=== PATIENT | male | born 2000 | race Caucasian/White ===

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

== ENCOUNTER 2020-02-07 23:26 | Emergency (ER) | payer OTHER ==
[~2020-02-07] VITALS: Ht 185.4 cm; Wt 90.7 kg
[~2020-02-07 23:26] MED LIST changes: +CIPRO500 MG PO; +NORCO 10-325 T1 EACH PO
[2020-02-07 23:35] VITALS: BP 121/60
== END 2020-02-08 01:30 | disposition home or self-care (01) ==
LOC: ED 23:26
DX: S86.911A Strain of unspecified muscle(s) and tendon(s) at lower leg level, right leg, initial encounter (principal); X58.XXXA Exposure to other specified factors, initial encounter; Y93.89 Activity, other specified; Y92.89 Other specified places as the place of occurrence of the external cause; Y99.8 Other external cause status

== ENCOUNTER → 2020-03-22 | Outpatient (CLI) | payer OTHER | END | disposition home or self-care (01) | LOC: COVID19 14:20 | PROVIDERS: ATTEND Internal Medicine | DX: Z20.828 Contact with and (suspected) exposure to other viral communicable diseases (principal) ==

== ENCOUNTER 2021-02-20 13:35 | Emergency (ER) | payer OTHER ==
[~2021-02-20] VITALS: Ht 182.8 cm; Wt 108.9 kg
[2021-02-20] MEDS ORDERED: CEPHALEXIN500 M1 PO (14:28)
[2021-02-20] MEDS ORDERED: SEPTDS PO (14:28)
== END 2021-02-20 14:36 | disposition home or self-care (01) ==
LOC: ED 13:35
DX: L05.91 Pilonidal cyst without abscess (principal)

== ENCOUNTER 2021-02-22 16:10 | Emergency (ER) | payer OTHER ==
[~2021-02-22 16:10] MED LIST changes: +SEPTDS PO
[2021-02-22 16:32] VITALS: BP 144/72
[2021-02-22] MEDS ORDERED: IBUPROFEN600 MG PO (17:02)
[2021-02-22] MEDS ORDERED: HYDROCODONE-AC1 EAC1 PO (17:02)
== END 2021-02-22 17:07 | disposition home or self-care (01) ==
LOC: ED 16:10
DX: L05.01 Pilonidal cyst with abscess (principal); Z91.030 Bee allergy status; Z79.2 Long term (current) use of antibiotics; Z79.899 Other long term (current) drug therapy

== ENCOUNTER 2021-10-13 17:44 | Emergency (ER) | payer OTHER ==
[~2021-10-13] VITALS: Ht 185.4 cm; Wt 104.3 kg
[~2021-10-13 17:44] MED LIST changes: +HYDROCODONE-AC1 EAC1 PO; +IBUPROFEN600 MG PO
[2021-10-13 17:58] VITALS: BP 131/61
[2021-10-13] MEDS ORDERED: CEPHALEXIN500 M1 PO (18:07)
[2021-10-13] MEDS ORDERED: NAPROXEN250 MG PO (18:07)
[2021-10-13] MEDS ORDERED: TYLENOL325 M1 PO (18:07)
[2021-10-13] MEDS ORDERED: HYDROCODONE-AC1 EAC1 PO ×3 (19:15→19:19)
== END 2021-10-13 19:26 | disposition home or self-care (01) ==
LOC: ED 17:44
DX: L05.91 Pilonidal cyst without abscess (principal)

== ENCOUNTER 2022-09-05 17:19 | Emergency (ER) | payer BC ==
[~2022-09-05] VITALS: Ht 185.4 cm; Wt 127.0 kg
[~2022-09-05 17:19] MED LIST changes: +NAPROXEN250 MG PO; +TYLENOL325 M1 PO
[2022-09-05 17:29] VITALS: BP 119/71
[2022-09-05] MEDS ORDERED: CIPRODEX 0.3%-7.5 ML OT (18:30)
== END 2022-09-05 18:34 | disposition home or self-care (01) ==
LOC: ED 17:19
DX: H60.92 Unspecified otitis externa, left ear (principal); Z91.030 Bee allergy status; Z90.89 Acquired absence of other organs

== ENCOUNTER 2023-09-05 19:11 | Emergency (ER) | payer MEDICAID ==
[~2023-09-05] VITALS: Ht 185.4 cm; Wt 122.5 kg
[~2023-09-05 19:11] MED LIST changes: +CIPRODEX 0.3%-7.5 ML OT
[2023-09-05 19:36] VITALS: BP 115/59
== END 2023-09-05 20:10 | disposition home or self-care (01) ==
LOC: ED 19:11
DX: T16.2XXA Foreign body in left ear, initial encounter (principal); Z91.030 Bee allergy status; X58.XXXA Exposure to other specified factors, initial encounter; Y93.89 Activity, other specified; Y92.89 Other specified places as the place of occurrence of the external cause; Y99.8 Other external cause status

== ENCOUNTER 2023-09-14 16:29 | Emergency (ER) | payer MEDICAID ==
[~2023-09-14] VITALS: Ht 185.4 cm; Wt 99.8 kg
[2023-09-14 16:47] VITALS: BP 121/67
[2023-09-14] MEDS ORDERED: SODIUM CHLORIDE 0.9% 1,000 ML IV ONE (17:00)
[2023-09-14] MEDS ORDERED: Ketorolac Tromethamine 15 MG/ML VIAL IV ONE (17:00)
[2023-09-14] MEDS ORDERED: Metoclopramide Hydrochloride 10 MG/2 ML AMP IV ONE (17:00)
[2023-09-14] MEDS ORDERED: diphenhydrAMINE hydrochloride 50 MG/ML VIAL IV ONE (17:00)
[2023-09-14 17:14] LABS: BASO # 0.1 10*3/uL (0.0-0.1); BASO % 0.4 % (0.0-1.0); EOS # 0.1 10*3/uL (0.0-0.4); EOS % 0.4 % (1.0-4.0); HEMATOCRIT 44.4 % (42.0-52.0); LYMPH # 2.4 10*3/uL (1.3-4.4); LYMPH % 18.6 % (27.0-41.0); MEAN CELL VOLUME 88.3 fl (80.0-94.0); MEAN CORPUSCULAR HGB 30.2 pg (27.0-31.0); MEAN CORPUSCULAR HGB CONC 34.2 g/dl (33.0-37.0); MEAN PLATELET VOLUME 10.9 fl (9.6-12.3); MONO # 0.8 10*3/uL (0.1-1.0); NEUT # 9.6 10*3/uL (2.3-7.9); NEUT % 74.2 % (47.0-73.0); PLATELET COUNT AUTOMATED 325 10*3/uL (130-400); RED BLOOD COUNT 5.03 10*6/uL (4.50-5.90); RED CELL DISTRI WIDTH 12.6 % (0-14.5); WHITE BLOOD COUNT 12.9 10*3/uL (4.8-10.8)
[2023-09-14 17:33] LABS: BUN 12 mg/dl (9-23); CHLORIDE 103 mmol/L (98-107)
[2023-09-14] MEDS ORDERED: REGLAN10 M1 PO (18:17)
[2023-09-14] MEDS ORDERED: IBU800 M2 PO (18:17)
== END 2023-09-14 18:24 | disposition home or self-care (01) ==
LOC: ED 16:29
PROVIDERS: Emergency Medicine
DX: R51.9 Headache, unspecified (principal); R11.2 Nausea with vomiting, unspecified; Z88.8 Allergy status to other drugs, medicaments and biological substances; Z91.030 Bee allergy status; Z90.89 Acquired absence of other organs

== ENCOUNTER 2024-02-14 08:11 | Emergency (ER) | payer MEDICAID ==
[~2024-02-14] VITALS: Ht 185.4 cm; Wt 95.3 kg
[~2024-02-14 08:11] MED LIST changes: +IBU800 M2 PO; +REGLAN10 M1 PO
[2024-02-14 08:29] VITALS: BP 115/63
[2024-02-14 08:54] LABS: BASO # 0.1 10*3/uL (0.0-0.1); BASO % 0.6 % (0.0-1.0); EOS # 0.3 10*3/uL (0.0-0.4); EOS % 2.6 % (1.0-4.0); HEMATOCRIT 40.4 % (42.0-52.0); LYMPH # 3.4 10*3/uL (1.3-4.4); LYMPH % 33.3 % (27.0-41.0); MEAN CELL VOLUME 89.8 fl (80.0-94.0); MEAN CORPUSCULAR HGB 30.4 pg (27.0-31.0); MEAN CORPUSCULAR HGB CONC 33.9 g/dl (33.0-37.0); MEAN PLATELET VOLUME 10.6 fl (9.6-12.3); MONO # 0.9 10*3/uL (0.1-1.0); NEUT # 5.5 10*3/uL (2.3-7.9); NEUT % 54.3 % (47.0-73.0); PLATELET COUNT AUTOMATED 299 10*3/uL (130-400); RED CELL DISTRI WIDTH 13.1 % (0-14.5); WHITE BLOOD COUNT 10.1 10*3/uL (4.8-10.8)
[2024-02-14 09:12] LABS: BUN 9 mg/dl (9-23); CHLORIDE 107 mmol/L (98-107); POTASSIUM 3.9 mmol/L (3.4-5.1)
== END 2024-02-14 09:35 | disposition home or self-care (01) ==
LOC: ED 08:11
PROVIDERS: Internal Medicine
DX: K52.9 Noninfective gastroenteritis and colitis, unspecified (principal); R11.2 Nausea with vomiting, unspecified; F17.200 Nicotine dependence, unspecified, uncomplicated; Z91.030 Bee allergy status

== ENCOUNTER 2025-03-15 17:29 | Emergency (ER) | payer MEDICAID ==
[2025-03-15 17:36] VITALS: BP 118/86
[2025-03-15] MEDS ORDERED: Amoxicillin/Clavulanate Pota 875 MG TAB PO ONE (17:50)
[2025-03-15] MEDS ORDERED: MELOXICAM15 MG PO (17:53)
[2025-03-15] MEDS ORDERED: AMOX-CLAV 875-1 EACH PO (17:53)
[2025-03-16] MEDS ORDERED: HYDROCODONE-AC1 EACH PO (21:48)
== END 2025-03-15 18:14 | disposition home or self-care (01) ==
LOC: ED 17:29
DX: K04.7 Periapical abscess without sinus (principal); K02.9 Dental caries, unspecified; F17.290 Nicotine dependence, other tobacco product, uncomplicated

== ENCOUNTER 2025-03-16 21:38 | Emergency (ER) | payer MEDICAID ==
[~2025-03-16] VITALS: Ht 187.9 cm; Wt 99.8 kg
[~2025-03-16 21:38] MED LIST changes: +AMOX-CLAV 875-1 EACH PO; +MELOXICAM15 MG PO
[2025-03-16] MEDS ORDERED: HYDROCODONE-AC1 EACH PO (21:48)
[2025-03-16 21:49] VITALS: BP 145/92
[2025-03-16] MEDS ORDERED: Acetaminophen/Hydrocodone 5 MG/325 MG TABLET PO ONE (21:50)
[2025-03-16] MEDS ORDERED: BENZOCAINE 20% 11.9 GM GEL T ONE (21:50)
== END 2025-03-16 22:24 | disposition home or self-care (01) ==
LOC: ED 21:38
DX: K04.7 Periapical abscess without sinus (principal); Z91.030 Bee allergy status

== ENCOUNTER 2025-03-22 21:59 | Emergency (ER) | payer MEDICAID ==
[~2025-03-22] VITALS: Ht 188 cm; Wt 95.3 kg
[~2025-03-22 21:59] MED LIST changes: +HYDROCODONE-AC1 EACH PO
[2025-03-22 22:06] VITALS: BP 147/76
== END 2025-03-22 23:59 | disposition left against medical advice (07) ==
LOC: ED 21:59
DX: K08.89 Other specified disorders of teeth and supporting structures (principal); Z53.29 Procedure and treatment not carried out because of patient's decision for other reasons; Z91.030 Bee allergy status